=== PATIENT | female | born 1965 ===

== ENCOUNTER → 2019-05-09 | Outpatient (CLI) | payer SELFPAY | LOC: LAB 15:14 → LAB SHORT 15:14 | DX: R30.0 Dysuria (principal) | CPT/HCPCS: 87077; 87086; 87186 ==

== ENCOUNTER 2021-02-02 13:00 | Day surgery (SDC) | payer BC ==
[~2021-02-02] VITALS: Ht 170.2 cm; Wt 86.4 kg
[~2021-02-02 13:00] MED LIST: LEVSOD100
== END 2021-02-02 15:30 | disposition home or self-care (01) ==
LOC: ORSCSDS 13:00
PROVIDERS: Surgery
PROC: 0DBP8ZX Excision of Rectum, Via Natural or Artificial Opening Endoscopic, Diagnostic (ICD-10-PCS; principal; 2021-02-02 14:30)
DX: Z12.11 Encounter for screening for malignant neoplasm of colon (principal); K62.1 Rectal polyp; E03.9 Hypothyroidism, unspecified; Z87.891 Personal history of nicotine dependence; Z79.899 Other long term (current) drug therapy
CPT/HCPCS: J0461; J2405; J2704; J7120